=== PATIENT | male | born 1950 | race Caucasian/White ===

== ENCOUNTER 2024-07-01 17:50 | Emergency (ER) | payer BC ==
[~2024-07-01] VITALS: Ht 175.3 cm; Wt 74.0 kg
[2024-07-01 17:52] VITALS: TEMP 97.5; O2SAT 95
[2024-07-01] MEDS: SODIUM CHLORIDE 0.9% 1,000 ML IV ONE (18:27)
[2024-07-01] MEDS: FAMOTIDINE 20MG/2ML VIAL IV STA (18:37)
[2024-07-01] MEDS: MORPHINE SULFATE 4 MG/ML INJ (FOR IV/IM USE) IV STA (18:37)
[2024-07-01] MEDS: ONDANSETRON HCL 4MG/2ML INJ IV STA (18:37)
[2024-07-01 18:47] LABS: DIFFERENTIAL COMMENT 1; HEMATOCRIT. 39.9 % (42.0-52.0); MEAN CORPUSCULAR HEMOGLOBIN 26.8 pg (28.0-32.0); MEAN CORPUSCULAR HGB CONC 32.6 g/dL (31.0-37.0); MEAN CORPUSCULAR VOLUME 82.2 fL (80.0-94.0); MEAN PLATELET VOLUME 8.4 fl (7.4-10.4); PLATELET 408 x1000/uL (130-400); RED BLOOD CELL COUNT 4.86 mill/uL (4.7-6.1); RED CELL DISTRIBUTION WIDTH 15.2 % (11.6-14.6); WHITE BLOOD COUNT 13.2 x1000/uL (4.5-11.0)
[2024-07-01 18:50] LABS: CARBON DIOXIDE 28 mEq/L (21-32); CHLORIDE 103 mEq/L (98-107); POTASSIUM 3.5 mEq/L (3.5-5.1); SODIUM 137 mEq/L (136-145)
[2024-07-01 18:51] LABS: CALCIUM 9.7 mg/dL (8.7-10.4)
[2024-07-01 18:55] LABS: CREATININE 1.1 mg/dL (0.6-1.3); GLUCOSE 269 mg/dL (70-105)
[2024-07-01 18:56] LABS: UREA NITROGEN BLOOD 14 mg/dL (9-23)
[2024-07-01 18:57] LABS: ALANINE AMINOTRANSFERASE 20 IU/L (10-49); ALBUMIN 4.9 g/dL (3.2-4.8); ASPARTATE AMINOTRANSFERASE 21 IU/L (<34)
[2024-07-01 18:58] LABS: BILIRUBIN TOTAL 0.4 mg/dL (0.1-1.0); PROTEIN TOTAL 7.6 g/dL (6.0-8.3)
[2024-07-01 19:11] LABS: TROPONIN I HIGH SENSITIVITY < 4 ng/L (3.0-53)
[2024-07-01 19:14] LABS: CLARITY URINE CLEAR (CLEAR); COLOR URINE YELLOW (YELLOW); GLUCOSE URINE 3+ (NEGATIVE); KETONES URINE 1+ (NEGATIVE); LEUKOCYTE ESTERASE URINE NEGATIVE (NEGATIVE); NITRITE URINE NEGATIVE (NEGATIVE); OCCULT BLOOD URINE NEGATIVE (NEGATIVE); PROTEIN URINE NEGATIVE (NEGATIVE); SPECIFIC GRAVITY URINE 1.025 (1.005-1.030); UROBILINOGEN URINE 0.2 E.U./dL (0.2-1.0)
[2024-07-01 20:03] LABS: WBC URINE 0-2 /hpf (0-2)
[2024-07-01 20:04] LABS: BACTERIA URINE TRACE; RBC URINE NONE SEEN /hpf (0-2); SQUAMOUS EPITHELIAL CELL URINE RARE /lpf (RARE/1+)
[2024-07-01] MEDS ORDERED: PROT20 MT (20:08)
[2024-07-01] MEDS ORDERED: FAMO-135 PO (20:08)
[2024-07-01] MEDS: PANTOPRAZOLE SODIUM 40 MG/VIAL IV ONE (20:25)
[2024-07-01 20:35] VITALS: BP 140/68; PULSE 69; RESP 16; O2SAT 96
[2024-07-02 10:46] LABS: ANISOCYTOSIS 1+; PLATELET ESTIMATE SLIGHTLY INCREASED
== END 2024-07-01 20:46 | disposition home or self-care (01) ==
LOC: ER 17:50
DX: R10.33 Periumbilical pain (principal); E11.9 Type 2 diabetes mellitus without complications; I10 Essential (primary) hypertension; Z90.49 Acquired absence of other specified parts of digestive tract
CPT/HCPCS: 80053; 81003; 83690; 85025; 84484; 36415; 71045; 74176; 93005; 96361; 96374; 96375; 99285; J3490; J2405; J2470; J2270; J7030; Z7610 ×3